=== PATIENT | female | born 1945 | race Caucasian/White ===

== ENCOUNTER 2019-11-11 15:07 | Outpatient (CLI) | payer MEDICARE, OTHER | END 2019-11-11 15:08 | disposition critical access hospital (66) | LOC: EMS 15:07 | PROVIDERS: ATTEND Surgery | DX: R42 Dizziness and giddiness (principal); R20.0 Anesthesia of skin; R51 Headache | CPT/HCPCS: A0425; A0429 ==

== ENCOUNTER 2019-11-11 15:43 | Emergency (ER) | payer MEDICARE, OTHER ==
[2019-11-11] MEDS ORDERED: KETOROLAC 15 MG/ML VIAL IVP STA (15:58)
[2019-11-11] MEDS ORDERED: MORPHINE 2 MG/ML CARPUJECT IVP STA ×2 (15:59→17:22)
[2019-11-11] MEDS ORDERED: SODIUM CHLORIDE 0.9% 1,000 ML IV STA (15:59)
--- NOTE | 2019-11-11 16:37 | CT Report ---
PROCEDURE: HEAD WO INDICATIONS: abrupt frontal headache today TECHNIQUE: Noncontrast 4.5 mm thick angled axial sections acquired from the foramen magnum to the vertex. For r adiation dose reduction, the following was used: automated exposure control, adjustment of mA and/or kV according to patient size. COMPARISON: None. FINDINGS: Image quality: Excellent. The cortical sulci demonstrate atrophy, consistent for patient's stated age. There are areas of hypo intensity in the periventricular and subcortical white matter. There is diffuse appearance of subara chnoid hemorrhage. In addition, hemorrhage is identified within the frontal horns third and fourth ve ntricles. There is mild dilation of the frontal horns the lateral ventricles as well as the third anh tricle in relation to the fourth ventricle. Posterior temporal horns are effaced. No gross midline sh ift. There is marked effacement of the quadrigeminal plate cistern. Prominent right frontal temporal scalp hematoma is present. Globes are symmetrical. Sinuses are aerated. Osseous structures are intact . IMPRESSION: 1. Extensive subarachnoid hemorrhage including intraventricular hemorrhage as above. There is effacem ent of the quadrigeminal plate cisterns. Overall appearance is concerning for impending herniation. 2. Right frontal temporal scalp hematoma. 3. Atrophy and chronic microvascular ischemic changes are present. The above findings were discussed with Dr. An on 11/11/2019 at 4:33 PM, as Dr. Sergey Rodrigues was no t immediately available for consultation. Reviewed by: Estefania Carter MD on 11/11/2019 4:36 PM PDT Approved by: Estefania Carter MD on 11/11/2019 4:36 PM PDT Station ID: [id number]
--- NOTE | 2019-11-11 16:44 | ED Physician Documentation ---
PD HPI HEADACHE - Stated complaint Stated Complaint: LOWERY - Chief complaint Chief Complaint: Neuro - History obtained from History obtained from: Patient, EMS - History of Present Illness Timing - onset: How many hours ago (1), Today Timing - onset during: Light activity (She was doing light gardening and just bent over to pull a weed and as she started to stand back up felt abrupt severe headache that made her feel lightheaded. She denied any fall or injury per se.) Timing - details: Abrupt onset, Still present Worst headache ever?: Worst headache ever? (yes) Location: Front Quality: [place]cl[place] Associated symptoms: Nausea. 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 denies: Abdominal Pain, Vomiting Skin: denies: Abrasion (s), Laceration (s) Neurologic: denies: Focal weakness, Numbness, Confused, Altered mental status Endocrine: reports: Easy bruising / bleeding. denies: Weight loss PD PAST MEDICAL HISTORY - Past Medical History Past Medical History: Yes Cardiovascular: Hypertension Respiratory: None Neuro: None Endocrine/Autoimmune: None GI: None FINISH CARPENTER: None : None HEENT: None Psych: None Musculoskeletal: None Derm: None Other Past Medical History: pt has luekemia (CLL), treated by Dr. Salinas, Oncology, in [place] - Past Surgical History Past Surgical History: Yes Ortho: Hip replacement, Other (She has had prior cervical disc surgery at [facility] in the past) - Allergies Allergies/Adverse Reactions: Allergies Allergy/AdvReac Type Severity Reaction Status Date / Time latex Allergy Rash Verified 11/11/19 16:02 - Social History Does the pt smoke?: No Smoking Status: Never smoker Does the pt drink ETOH?: No Does the pt have substance abuse?: No - Immunizations Immunizations are current?: Yes PD ED PE NORMAL - Vitals Vital signs reviewed: Yes - General General: Alert and oriented X 3, Well developed/nourished - HEENT HEENT: Other (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) - Neck Neck: Supple, no meningeal sign, No adenopathy - Cardiac Cardiac: RRR, No murmur - Respiratory Respiratory: Clear bilaterally - Abdomen Abdomen: Soft, Non tender - Derm Derm: Normal color, Warm and dry - Neuro Neuro: Alert and oriented X 3, hull grinder 2-12 intact, No motor deficit, No sensory deficit, Normal speech Eye Opening: Spontaneous Motor: Obeys Commands Verbal: Oriented GCS Score: 15 Results - Vitals Vitals: Vital Signs - 24 hr 11/11/19 11/11/19 11/11/19 16:02 16:04 17:04 Temperature 36.9 C Heart Rate 88 85 85 Respiratory 16 16 16 Rate Blood Pressure 156/88 H 155/78 H 165/81 H O2 Saturation 98 99 99 11/11/19 11/11/19 11/11/19 17:30 18:00 18:30 Temperature Heart Rate 100 100 100 Respiratory 16 16 16 Rate Blood Pressure 150/86 H 155/96 H 133/66 H O2 Saturation 100 100 100 Oxygen O2 Source Room air - Labs Labs: Laboratory Tests 11/11/19 11/11/19 11/11/19 16:49 16:49 16:49 WBC 23.1 H RBC 3.91 L Hgb 12.6 Hct 38.1 MCV 97.4 MCH 32.2 H MCHC 33.1 RDW 12.9 Plt Count 187 MPV 10.7 Neut # (Auto) 4.4 Lymph # (Auto) 18.2 H [place] # (Auto) 0.4 Eos # (Auto) 0.0 Baso # (Auto) 0.1 Absolute Nucleated RBC 0.00 Band Neuts % (Manual) Not Reportable Abnorm Lymph % (Manual) Not Reportable Nucleated RBC % 0.0 Neutrophils # (Manual) Not Reportable Lymphocytes # (Manual) Not Reportable Monocytes # (Manual) Not Reportable Eosinophils # (Manual) Not Reportable Basophils # (Manual) Not Reportable Differential Comment MANUAL=AUTO DIFF Manual Slide Review Indicated WBC Morphology 1+ SMUDGE CELLS Platelet Estimate NORMAL (130-450,000) Platelet Morphology NORMAL APPEARANCE RBC Morph Micro Appear NORMAL APPEARANCE PT 11.8 INR 1.0 APTT 23.9 L Sodium 137 Potassium 3.6 Chloride 101 Carbon Dioxide 28 Anion Gap 8.0 BUN 17 Creatinine 0.8 Estimated GFR (MDRD) 70 L Glucose 121 H Calcium 9.4 Total Bilirubin 0.9 AST 20 ALT 19 Alkaline Phosphatase 43 Total Protein 5.9 L Albumin 4.4 Globulin 1.5 L Albumin/Globulin Ratio 2.9 H Lipase 31 - Rads (name of study) head CT Radiology: Prelim report reviewed (Extensive subarachnoid hemorrhage. No masses.), See rad report head angio Radiology: Prelim report reviewed, See rad report PD MEDICAL DECISION MAKING - ED course Complexity details: reviewed old records, reviewed results, considered differential (abrupt severe headache concerning for ICH. Will get CT of head. To give some pain meds. ), d/w patient Departure - Departure Disposition: 02 Transfer Acute Care Hosp Clinical Impression: Subarachnoid hemorrhage Condition: Stable Record reviewed to determine appropriate education?: Yes Discharge Date/Time: 11/11/19 18:54
[2019-11-11] MEDS ORDERED: IOVERSOL 320 100 ML VIAL IVP ONE ×2 (16:54→20:29)
[2019-11-11 16:57] LABS: BASOPHILS # (AUTO) 0.1 10^3/uL (0.0-0.1); BASOPHILS % (AUTO) 0.2 %; EOSINOPHILS % (AUTO) 0.2 %; HGB - HEMOGLOBIN 12.6 g/dL (12.0-16.0); LYMPHOCYTES # (AUTO) 18.2 10^3/uL (1.5-3.5); LYMPHOCYTES % (AUTO) 78.7 %; MEAN CORPUSCULAR HEMOGLOBIN 32.2 pg (27.0-31.0); MEAN CORPUSCULAR HGB CONC 33.1 g/dL (32.0-36.0); MEAN CORPUSCULAR VOLUME 97.4 fL (81.0-99.0); MEAN PLATELET VOLUME 10.7 fL (7.9-10.8); MONOCYTES # (AUTO) 0.4 10^3/uL (0.0-1.0); MONOCYTES % (AUTO) 1.5 %; NEUTROPHILS # (AUTO) 4.4 10^3/uL (1.5-6.6); NEUTROPHILS % (AUTO) 19.1 %; PLT - PLATELET COUNT 187 10^3/uL (130-450); RED BLOOD COUNT 3.91 10^6/uL (4.20-5.40); RED CELL DISTRIBUTION WIDTH 12.9 % (12.0-15.0); WHITE BLOOD COUNT 23.1 x10^3/uL (4.8-10.8)
[2019-11-11] MEDS ORDERED: TRANEXAMIC ACID 1,000 MG in SODIUM CHLORIDE 0.9% 100ML 100 ML IV STA (16:58)
[2019-11-11 17:02] LABS: PT - PROTHROMBIN TIME 11.8 secs (9.9-12.6)
[2019-11-11 17:08] LABS: ALBUMIN 4.4 g/dL (3.2-5.5); ALBUMIN/GLOBULIN RATIO 2.9 (1.0-2.2); BILIRUBIN,TOTAL 0.9 mg/dL (0.2-1.0); CALCIUM 9.4 mg/dL (8.5-10.3); CREATININE 0.8 mg/dL (0.4-1.0); TOTAL PROTEIN 5.9 g/dL (6.7-8.2)
[2019-11-11 17:09] LABS: PARTIAL THROMBOPLASTIN TIME 23.9 secs (24.9-33.3)
[2019-11-11 17:19] LABS: PLATELET ESTIMATE, MANUAL NORMAL (130-450,000) (NORMAL); PLATELET MORPHOLOGY NORMAL APPEARANCE (NORMAL); RBC MORPHOLOGY (MULTIPLE) NORMAL APPEARANCE (NORMAL)
[2019-11-11 17:20] LABS: DIFFERENTIAL COMMENT MANUAL=AUTO DIFF
[2019-11-11] MEDS ORDERED: ONDANSETRON 4 MG/2 ML VIAL ONE (17:46)
[2019-11-11] MEDS ORDERED: ONDANSETRON 4 MG/2 ML VIAL IVP STA (17:47)
[2019-11-11] MEDS ORDERED: NICARDIPINE HCL 25 MG in SODIUM CHLORIDE 0.9% 240 ML IV SCH (18:00)
--- NOTE | 2019-11-11 18:26 | CT Report ---
PROCEDURE: ANGIO HEAD W/WO INDICATIONS: L sided facial droop CONTRAST: IV CONTRAST: Optiray 320 ml: 80 PO CONTRAST: *NO PO CONTRAST TECHNIQUE: Precontrast 4.5 mm thick angled axial sections acquired from the foramen magnum to the vertex. Afte r the administration of intravenous contrast, 1 mm thick sections acquired through the [place] of [place] is. Postcontrast 4.5 mm thick sections then re-acquired from the foramen magnum to the vertex. 3-di mensional [id number] (MIP) and/or volume rendering reformats were acquired of the c entral intracranial vasculature. For radiation dose reduction, the following was used: automated ex posure control, adjustment of mA and/or kV according to patient size. COMPARISON: CT head from the same day. FINDINGS: Image quality: Excellent. Anterior circulation: Intracranial internal carotid arteries are normal in size and flow. The flow within the paired anterior cerebral arteries is normal and symmetric. The flow within the middle cer ebral arteries is normal and symmetric. The anterior communicating artery is seen. No aneurysms are seen. Posterior circulation: Visualized portions of the vertebral arteries demonstrate normal caliber, and join to form a normal appearing basilar artery. Flow within the posterior cerebral arteries is norm al and symmetric. No aneurysms are seen. CSF spaces: Ventricles are normal in size and shape. Basal cisterns are patent. No extra-axial flu id collections. Brain: Previously noted extensive subarachnoid hemorrhage is again seen with blood noted extending to frontal horns, third and fourth ventricles unchanged from earlier study. No gross midline shift is s een. Effacement of posterior temporal horns is again seen. No new area of intracranial bleed. No area of abnormal enhancement is noted. Skull and face: Calvarium and facial bones appear intact, without suspicious lesions. Sinuses: Visualized sinuses and mastoids are clear. IMPRESSION: 1. No hemodynamically significant stenosis or aneurysm is seen in the intracranial circulation. 2. Persistent extensive bilateral subarachnoid hemorrhage not significantly changed from earlier stud y. There is less extension into both lateral ventricles, third and fourth ventricle. No new area of i ntracranial bleed. No significant midline shift. 3. No area of abnormal intracranial enhancement. Reviewed by: Rey Thrasher MD on 11/11/2019 6:24 PM PDT Approved by: Rey Thrasher MD on 11/11/2019 6:24 PM PDT Station ID: [id number]
[2019-11-11 18:53] VITALS: BP 133/66
== END 2019-11-11 18:54 | disposition short-term general hospital (02) ==
LOC: ED 15:43
DX: I60.9 Nontraumatic subarachnoid hemorrhage, unspecified (principal); I10 Essential (primary) hypertension; C91.10 Chronic lymphocytic leukemia of B-cell type not having achieved remission; Z79.899 Other long term (current) drug therapy
CPT/HCPCS: 36415; 70450; 70496; 80053; 83690; 85025; 85610; 85730; 96361; 96365; 96375; 99284; 99285; Q9967